=== PATIENT | female | born 1975 | race Caucasian/White ===

== ENCOUNTER 2016-12-09 01:10 | Emergency (ER) | payer OTHER ==
[~2016-12-09] VITALS: Ht 154.9 cm; Wt 80.0 kg
[~2016-12-09 01:10] MED LIST: ENDOCET 5-3251 EACH PO; MOTRIN800 MG PO
[2016-12-09 03:56] LABS: EOSINOPHIL (%) 3.3 % (0-5); EOSINOPHIL COUNT 0.3 K/uL (0-0.3); HEMATOCRIT 36.6 % (36.0-46.0); IMMATURE GRANULOCYTE (%) 0.3 % (0.0-0.7); IMMATURE GRANULOCYTE COUNT 0.3 K/uL; LYMPHOCYTE COUNT 2.9 K/uL (1.0-2.8); MCH 30.2 PG (29.0-34.0); MCHC 34.2 G/DL (30.0-36.0); MCV 88.4 FL (83-99); MEAN PLAT.VOLUME 10.1 uM^3 (9.5-12.4); MONOCYTE (%) 6.9 % (3-12); MONOCYTE COUNT 0.6 K/uL (0-0.8); NEUTROPHIL (%) 56.5 % (45-76); NEUTROPHIL COUNT 5.1 K/uL (1.8-6.4); PLATELET COUNT 277 K/uL (156-360); RBC DIS.WIDTH-CV 13.1 % (11.8-14.6); RBC DIS.WIDTH-SD 40.8 % (39-53); RED BLOOD COUNT 4.14 M/uL (3.80-5.20)
[2016-12-09 04:09] LABS: INFLUENZA A VIRAL ANTIGEN NEGATIVE; INFLUENZA B VIRAL ANTIGEN NEGATIVE
[2016-12-09 04:09] LABS: CHLORIDE 106 mEq/L (99-109); POTASSIUM 3.5 mEq/L (3.7-5.4); SODIUM 139 mEq/L (136-147)
[2016-12-09 04:12] LABS: GLUCOSE 108 mg/dL (70-99)
[2016-12-09 04:13] LABS: ANION GAP 9 MEQ/L (2-14); TOTAL BILIRUBIN 0.6 mg/dL (0.0-1.0)
[2016-12-09 04:15] LABS: ALKALINE PHOSPHATASE 78 IU/L (3-129); GFR ESTIMATE (CALCULATED) > 59 mL/min/
[2016-12-09 04:16] LABS: UREA NITROGEN (BUN) 13 mg/dL (9-23)
[2016-12-09 04:16] LABS: COLOR YELLOW ((YELLOW)); LEUKOCYTES SMALL; NITRITE NEGATIVE
[2016-12-09 04:17] LABS: ADD MIUA? YES; BACTERIA NONE SEEN /HPF; BILIRUBIN NEGATIVE; BLOOD SMALL; EPITHELIAL CELLS RARE /HPF; GLUCOSE (STRIP) NEGATIVE; KETONES NEGATIVE; MUCUS TRACE /LPF; PROTEIN (STRIP) NEGATIVE; RED BLOOD CELLS 0-5 /HPF (0-5); UCUL ADDED? NO; UROBILINOGEN 0.2 MG/DL (0.2-1.0)
[2016-12-09 04:28] LABS: QUANTITATIVE HCG < 4.0 MIU/ML
[2016-12-09] MEDS ORDERED: AUGMENTIN875 MG PO (05:57)
[2016-12-09 06:40] VITALS: BP 129/73
[2016-12-10 12:16] LABS: CHLAMYDIA TRACHOMATIS NEGATIVE; NEISSERIA GONORRHOEAE NEGATIVE
== END 2016-12-09 06:40 | disposition home or self-care (01) ==
LOC: EME 01:10
PROVIDERS: Emergency Medicine
DX: N39.0 Urinary tract infection, site not specified (principal); R53.1 Weakness; Z79.891 Long term (current) use of opiate analgesic; Z87.891 Personal history of nicotine dependence
CPT/HCPCS: 80053; 81003; 83605; 84702; 85025; 87040; 87210; 87491; 87502; 87591; 99281; 99284; J7030